=== PATIENT | female | born 1990 | race Caucasian/White ===

== ENCOUNTER 2020-06-09 21:46 | Emergency (ER) | payer BC, OTHER ==
[~2020-06-09] VITALS: Ht 167 cm; Wt 61.4 kg
--- NOTE | 2020-06-09 22:10 | NUR ---
Pt was informed that we could do lab work and a urine test at this time but that she wouldn't be able to get an ultrasound until tomorrow as an outpatient. Pt decided that she did not want to wait on any lab work and would just call her physician tomorrow.
--- NOTE | 2020-06-09 22:11 | ED GU-Female ---
General Chief Complaint: Female Reproductive Stated Complaint: SPOTTING/6WKS Source: patient, RN/MD Exam Limitations: no limitations History of Present Illness Date Seen by Provider: Jun 09, 2020 Time Seen by Provider: 21:55 Initial Comments This patient is a 30-year-old female that is a at 6 weeks . Patient states her last was a spontaneous . Patient states that she started spotting and then had some brought her blood per vagina to having some mild lower abdominal cramping. Patient is here wanting to know if she is having a miscarriage. I did discuss at length with patient about options. I did offer the patient a full medical screening exam including laboratory evaluation a blood beta hCG. However we do not have ultrasound available and the patient was advised. Patient is not having any significant abdominal pain at this time. I did at length discuss with patient about options including having the nurse in the room to discuss options about maybe having evaluation by either returning to the emergency department tomorrow for an outpatient ultrasound. Given the options the patient has declined a medical screening exam. She also declined returning for an ultrasound in the morning. Patient states that she will follow up with her [employer] patient again was offered full medical screening exam patient has declined. Allergies and Home Medications Allergies Coded Allergies: ethinyl estradiol (Verified Allergy, Unknown, 06/09/20) norgestimate (Verified Allergy, Unknown, 06/09/20) Patient Home Medication List Home Medication List Reviewed: Yes Review of Systems Review of Systems Constitutional: No no symptoms reported; see HPI; No chills, No diaphoresis, No dizziness, No fever, No malaise, No weakness, No weight gain, No weight loss, No other EENTM: No see HPI, No no symptoms reported, No ear discharge, No hearing loss, No ear pain, No blurred vision, No double vision, No eye pain, No tearing, No vision loss, No dental problems, No hoarseness, No mouth pain, No mouth swelling, No epistaxis, No nose congestion, No nose pain, No throat pain, No throat swelling, No other Respiratory: No no symptoms reported, No see HPI, No cough, No dyspnea on exertion, No hemoptysis, No orthopnea, No phlegm, No short of breath, No stridor, No wheezing, No other Cardiovascular: No no symptoms reported, No see HPI, No chest pain, No edema, No Hx of Intervention, No palpitations, No syncope, No vascular heart diseas, No other Gastrointestinal: No RUQ, No LUQ, No RLQ, No LLQ, No no symptoms reported, No see HPI, No abdominal pain, No constipation, No diarrhea, No dysphagia, No hematemesis, No heartburn, No jaundice, No loss of appetite, No melena, No nausea, No vomiting, No other Genitourinary: see HPI All Other Systemes Reviewed Negative Unless Noted: Yes Past [id number] Hx Patient Social History Alcohol Use: Denies Use Recreational Drug Use: No Smoking Status: Never a Smoker 2nd Hand Smoke Exposure: No Recent Foreign Travel: No Contact w/Someone Who Travel: No Recent Hopitalizations: No Physical Abuse: No Sexual Abuse: No Past Medical History Surgeries: No Respiratory: No Cardiac: No Neurological: No Genitourinary: No Gastrointestinal: No Musculoskeletal: No Endocrine: No HEENT: No Cancer: No Psychosocial: No Integumentary: No Blood Disorders: No Physical Exam Vital Signs Capillary Refill : Height, Weight, BMI Height: '" Weight: lbs. oz. kg; BMI Method: General Appearance: WD/WN, no apparent distress Cardiovascular: normal peripheral pulses, regular rate, rhythm, no edema, no gallop, no JVD, no murmur Respiratory: chest non-tender, lungs clear, normal breath sounds, no respiratory distress, no accessory muscle use, respiratory distress Gastrointestinal: normal bowel sounds, non tender, soft, no organomegaly, no pulsatile mass, abnormal bowel sounds Skin: normal color, warm/dry, pallor Progress/Results/Core Measures Suspected Sepsis SIRS Temperature: Pulse: Respiratory Rate: Blood Pressure / Mean: Results/Orders Vital Signs/I&O Capillary Refill : Progress Note : Time: 22:10 Progress Note Patient denies offered full medical screening exam the patient has declined wishes to be discharged to follow up with her primary care [employer]. Departure Impression Primary Impression: Vaginal bleeding affecting early Disposition: 01 HOME, SELF-CARE Condition: Stable Departure-Patient Inst. Decision time for Depature: 22:10 Referrals: NO,LOCAL PHYSICIAN (PCP) Primary Care Physician EDUARD MCALLISTER DO Patient Instructions: Bleeding With (DC) Add. Discharge Instructions: Follow-up with your primary care physician as you have requested. Understanding you were offered full medical screening exam in the emergency department and you may return at anytime for such exam. All discharge instructions reviewed with patient and/or family. Voiced understanding. STEPHANIE BAUMAN MD Jun 09, 2020 22:11
[2020-06-09 22:12] VITALS: BP 124/80
== END 2020-06-09 22:13 | disposition home or self-care (01) ==
LOC: ER FS 21:50
DX: O20.9 Hemorrhage in early pregnancy, unspecified (principal); Z3A.01 Less than 8 weeks gestation of pregnancy; Z88.8 Allergy status to other drugs, medicaments and biological substances
CPT/HCPCS: 99282